=== PATIENT | male | born 1980 | race Two or more races ===

== ENCOUNTER 2017-06-02 12:45 | Emergency (ER) | payer OTHER ==
--- NOTE | ~2017-06-02 | CT4 ---
[facility] A Service of [facility] RADIOLOGY TEXT RESULTS PATIENT: JOSE R TREVIÑO LOCATION: [facility] : [birth year] UNIT #: [id number] AGE: [address]: Amarjit López MD SEX: M ORDER DR: [id number] [facility] [address] [place], [place] [address] [id number] E MR#: [id number] #: [id number] NAME: JOSE R TREVIÑO : 1980 SEX: M STUDY DATE/TIME: 06/02/2017 15:03 UNIT: [facility] ROOM: STUDY DESCRIPTION: CT Abd and Pelv Wo Cont Attending Physician: Amarjit López M.D. Ordering Physician: Amarjit López M.D. Primary Care Physician: No Primary Care Physician MEDICAL IMAGING REPORT This report is preliminary unless electronic signature is present EXAM Abdomen and pelvis CT without contrast. HISTORY Right-sided renal colic radiating to the right lower quadrant beginning this morning. TECHNIQUE Axial images were obtained without contrast. This CT exam was performed with one or more of the following radiation dose reduction techniques: automatic exposure control, adjustment of mA and/or kV according to patient size, and iterative reconstruction. FINDINGS The liver, spleen, and pancreas are normal in size. The left kidney is unremarkable. The right kidney demonstrates moderate hydronephrosis. There is a 2 mm nonobstructing right kidney stone. The right ureter is mildly dilated. There is a stone just above the UVJ on the right that measures 2-3 mm in diameter causing the obstruction. No inflammatory changes are seen elsewhere in the abdomen or pelvis. IMPRESSION 2-3 mm obstructing stone just above the UVJ on the right with moderate hydronephrosis. There is also a 2 mm nonobstructing right kidney stone. Dictated by... Jose Daniel Garcia M.D. THIS IS AN ELECTRONICALLY VERIFIED REPORT Jose Daniel Garcia M.D. at 06/03/2017 6:47 AM DAVID/lonnie [facility] A Service of [facility] RADIOLOGY TEXT RESULTS PATIENT: JOSE R TREVIÑO LOCATION: [facility] : [birth year] UNIT #: [id number] AGE: [address]: Amarjit López MD SEX: M ORDER DR: TD: 06/02/2017 19:29 JOB #: [id number] MEDICAL IMAGING REPORT Page 1 of 1 COPY
[2017-06-02 13:38] LABS: BASOPHIL% 0.4 % (0-2.5); DIFF IND NO; EOSINOPHIL# 0.1 X10e3 (0-0.7); EOSINOPHIL% 0.9 % (0.0-7.0); HEMOGLOBIN 15.8 gm/dL (13.0-16.0); LYMPHOCYTE# 2.5 X10e3 (1.0-3.5); LYMPHOCYTE% 22.4 % (17.0-45.0); MEAN CELL VOLUME 84.4 FL (83-96); MEAN CORPUSCULAR HEMOGLOBIN 27.7 PG (28-34); MEAN CORPUSCULAR HGB CONC 32.8 g/dL (30-36); MEAN PLATELET VOLUME 9.4 FL (6.5-11.5); MONOCYTE# 0.7 X10e3 (0-1.0); MONOCYTE% 6.6 % (3.0-12.0); NEUTROPHIL# 7.7 X10e3 (1.5-7.1); NEUTROPHIL% 69.7 % (40-75); PLATELET COUNT 253 X10e3 (140-420); RED BLOOD COUNT 5.68 X10e (3.90-5.60); RED CELL DISTRIBUTION WIDTH 14.1 % (11.0-15.5)
[2017-06-02 14:02] LABS: ALBUMIN SERUM 4.7 g/dL (3.5-5.0); ALKALINE PHOSPHATASE 63 U/L (32-92); ALT (SGPT) 43 U/L (10-40); AMYLASE 27 U/L (0-46); AST (SGOT) 31 U/L (10-42); BILIRUBIN,TOTAL 0.8 mg/dL (0.2-2.0); BLOOD UREA NITROGEN 16 mg/dL (9-23); BUN/CREATININE RATIO 17.77; CALCIUM SERUM 9.5 mg/dL (8.4-10.2); CARBON DIOXIDE 27 mmol/L (22-31); CHLORIDE 103 mmol/L (100-111); CREATININE SERUM 0.9 mg/dL (0.6-1.4); GLUCOSE FASTING 98 mg/dL (70-110); LIPASE 21 U/L (22-51); POTASSIUM 3.9 mmol/L (3.5-5.1); PROTEIN TOTAL SERUM 7.8 g/dL (6.0-8.3); SODIUM 138 mmol/L (135-145)
[2017-06-02 14:07] LABS: BILIRUBIN, DIRECT <0.1 mg/dL (0.0-0.2); BILIRUBIN,INDIRECT 0.7 mg/dL (0.0-0.9)
== END 2017-06-02 16:20 | disposition home or self-care (01) ==
LOC: CED 12:45
PROVIDERS: Emergency Medicine
DX: N20.1 Calculus of ureter (principal); F17.200 Nicotine dependence, unspecified, uncomplicated
CPT/HCPCS: 36415; 74176; 80048; 80076; 82150; 83690; 85025; 96374; 96375; 99284; J1170; J1885; J2270; J2405

== ENCOUNTER 2017-06-04 17:25 | Observation (INO) | payer OTHER ==
--- NOTE | ~2017-06-04 | HP ---
Unit #: [id number] #: [id number] Patient: JOSE R TREVIÑO [id number] [address] [address] [id number] I MR#: [id number] NAME: JOSE R TREVIÑO ROOM: 569 Age: 36 Sex: M Admission Date: 06/04/2017 : 1980 Attending Physician: Lucius Phillips M.D. Primary Care Physician: No Primary Care Physician HISTORY AND PHYSICAL CHIEF COMPLAINT Right flank pain, recurrent ER visitor. HISTORY OF PRESENTING ILLNESS Recurrent ER visits for retractable pain related to a 2 mm calculi, failed trial of passage. No evidence of infection, no evidence of kidney failure. He was admitted overnight with hydration and Flomax and failed to pass the stone. Intractable pain. He wishes intervention for the 2 mm distal ureteral stone. PAST MEDICAL HISTORY None. MEDICATIONS/ALLERGIES Medications and allergies reviewed in the chart and noted. REVIEW OF SYSTEMS Flank pain. No fevers, no nausea, no vomiting. No chest pain, no shortness of breath. SOCIAL HISTORY Denies illicit drug use. FAMILY HISTORY Noncontributory. PHYSICAL EXAMINATION VITAL SIGNS: Afebrile. Vital signs stable. ABDOMEN: Soft, nontender, nondistended. EXTREMITIES: No clubbing, cyanosis or edema. NEUROLOGICAL: Extraocular motions intact. ASSESSMENT Right ureteral calculi, distal. PLAN Right ureteroscopy, laser lithotripsy, basket extraction of stone, insertion of stents. Risks, benefits and alternatives were discussed, informed consent was obtained. Unit #: [id number] #: [id number] Patient: JOSE R TREVIÑO Dictated by Esther Gurrola/minna TD: 06/06/2017 06:33 JOB #: [id number] HISTORY AND PHYSICAL Page 1 of 1 X LOCO CASTILLO MD X HISTORY AND PHYSICAL
--- NOTE | ~2017-06-04 | OR ---
Unit #: [id number] #: [id number] Patient: JOSE R TREVIÑO [id number] [address] [address] [id number] I MR#: [id number] NAME: JOSE R TREVIÑO ROOM: 569 Date of Procedure: 06/05/2017 Admission Date: 06/04/2017 Surgeon: Phoenix Castillo M.D. : 1980 Attending Physician: Lucius Phillips M.D. Primary Care Physician: Primary Care Physician No OPERATIVE REPORT PREOPERATIVE DIAGNOSIS Right ureteral calculi. POSTOPERATIVE DIAGNOSIS Right ureteral calculi. PROCEDURES PERFORMED Right ureteroscopy, basket extraction of stone, and insertion of right ureteral stent. OPERATIVE INDICATION A 36-year-old gentleman with refractory pain who presents to the emergency room twice in the past week for pain secondary to a 3 mm right ureteral stone. He wishes to proceed with above-mentioned procedure after risks, benefits, alternatives, and complications were discussed. OPERATIVE FINDINGS Two small fragments in the distal right ureter 1 mm x 1 mm fragment and a second 2 mm x 3 mm fragment. DESCRIPTION OF PROCEDURE The patient was prepped and draped in lithotomy position. After induction of general anesthesia, the cystoscope was inserted and the right ureteral orifice was cannulated with a Sensor wire. Semi-rigid ureteroscopy was then performed and the above-mentioned stones were noted. These stones were basket extracted and sent for analysis. Complete ureteroscopy revealed no additional ureteral calculi. The scope was removed. A 6 x 24 JJ ureteral stent was placed over the safety wire under fluoroscopic guidance. Good curls were noted in the kidney and the bladder. The patient tolerated the procedure well. Of note, the catheter was left on a string. PLAN He will follow up in the office in 1 week for stent removal via tether. COMPLICATIONS None. ESTIMATED BLOOD LOSS None. SPECIMEN Unit #: [id number] #: [id number] Patient: JOSE R TREVIÑO Kidney stone for analysis. DRAINS None. INDWELLING DEVICES Right ureteral stent. Dictated by... Esther Gurrola/marshal TD: 06/07/2017 03:32 JOB #: [id number] OPERATIVE REPORT Page 1 of 1 X PHOENIX CASTILLO MD PROCEDURE OPERATIVE NOTE
--- NOTE | ~2017-06-04 | CT4 ---
[facility] A Service of [facility] RADIOLOGY TEXT RESULTS PATIENT: JOSE R TREVIÑO LOCATION: [facility] 569-01 : [birth year] UNIT #: [id number] AGE: [address]: Lucius Phillips MD SEX: M ORDER DR: [id number] [facility] [address] [place], [place] [address] [id number] I MR#: [id number] Acc #: [id number] NAME: JOSE R TREVIÑO : 1980 SEX: M STUDY DATE/TIME: 06/04/2017 19:57 UNIT: [facility] ROOM: [facility] STUDY DESCRIPTION: CT Abd and Pelv Wo Cont Attending Physician: Lucius Phillips M.D. Ordering Physician: Lazaro Agarwal M.D. Primary Care Physician: Primary Care Physician No MEDICAL IMAGING REPORT This report is preliminary unless electronic signature is present EXAM CT of abdomen and pelvis without contrast, 06/04/2017, 1957 hours. CLINICAL HISTORY 36-year-old with right flank pain since 06/02/2017. Diagnosed with kidney stone, 06/02/2017, with persistent pain. COMPARISON CT 06/02/2017. TECHNIQUE Helical noncontrasted images were obtained from the lung bases through the pubic symphysis without oral or intravenous contrast. Sagittal and coronal reconstructions were performed. Total exam DLP 782 mGy-cm. This CT exam was performed with one or more of the following radiation dose reduction techniques: automatic exposure control, adjustment of mA and/or kV according to patient size, and iterative reconstruction. FINDINGS Images through the lung bases remain clear. There is no effusion. Images through the abdomen without contrast demonstrate a normal appearance to the liver, spleen, pancreas, gallbladder, bile ducts and adrenal glands. The left kidney is normal. The right kidney demonstrates persistent moderate pelvocaliectasis and ureterectasis. There is a 2 mm nonobstructing stone in the anterior mid-right kidney unchanged. There is minimal stranding around the upper ureter perhaps minimally increased from the prior study. The previous stone which was in the distal ureter just prior to ureterovesical junction is now projecting at the ureterovesical junction perhaps in the intramural portion of the ureter. No new stone is seen. [facility] A Service of [facility] RADIOLOGY TEXT RESULTS PATIENT: JOSE R TREVIÑO LOCATION: [facility] 569-01 : [birth year] UNIT #: [id number] AGE: [address]: Lucius Phillips MD SEX: M ORDER DR: Stomach, small bowel and colon are normal. IMPRESSION 1. The previous 2-3 mm stone which was in the distal right ureter just short of the right ureterovesical junction on 06/02/2017, now projects either at the UVJ or just within the bladder or the intramural portion of the ureter. There is persistent moderate pelvocaliectasis, similar to 06/02/2017, with perhaps slight increase in stranding around the upper ureter and renal pelvis since 06/02/2017. 2. Stable 2 mm nonobstructing stone in the anterior mid-right kidney. STAT * RESULT Dictated by... Nataly Ratliff M.D. THIS IS AN ELECTRONICALLY VERIFIED REPORT Nataly Ratliff M.D. at 06/05/2017 6:41 PM Darek TD: 06/04/2017 20:17 JOB #: [id number] MEDICAL IMAGING REPORT Page 1 of 1 COPY
[2017-06-04 20:02] LABS: BASOPHIL% 0.3 % (0-2.5); EOSINOPHIL% 0.4 % (0.0-7.0); HEMATOCRIT 43.3 % (38.0-50.0); HEMOGLOBIN 14.1 gm/dL (13.0-16.0); LYMPHOCYTE# 1.5 X10e3 (1.0-3.5); MEAN CELL VOLUME 83.9 FL (83-96); MEAN CORPUSCULAR HEMOGLOBIN 27.3 PG (28-34); MEAN CORPUSCULAR HGB CONC 32.5 g/dL (30-36); MEAN PLATELET VOLUME 9.9 FL (6.5-11.5); MONOCYTE# 0.9 X10e3 (0-1.0); MONOCYTE% 8.3 % (3.0-12.0); NEUTROPHIL# 8.9 X10e3 (1.5-7.1); PLATELET COUNT 195 X10e3 (140-420); RED BLOOD COUNT 5.16 X10e (3.90-5.60); RED CELL DISTRIBUTION WIDTH 13.9 % (11.0-15.5); WHITE BLOOD COUNT 11.4 X10e3 (4.0-10.5)
[2017-06-04 20:05] LABS: DIFF IND NO
[2017-06-04 20:08] LABS: BUN/CREATININE RATIO 8.46; CALCIUM SERUM 9.3 mg/dL (8.4-10.2); CREATININE SERUM 1.3 mg/dL (0.6-1.4); GLOM FILT RATE Estimated 71.2 mL/min (>60)
[2017-06-04 21:35] LABS: URINE SOURCE CLEAN CATCH
[2017-06-04 21:39] LABS: URINE APPEARANCE CLEAR; URINE BILIRUBIN NEG (NEG); URINE BLOOD NEG (NEG); URINE COLOR YELLOW; URINE GLUCOSE NEG (NEG); URINE KETONE NEG (NEG); URINE LEUKOCYTE ESTERASE NEG (NEG); URINE NITRATE NEG (NEG); URINE PH 5.5 (5-8); URINE PROTEIN NEG (NEG); URINE SPECIFIC GRAVITY 1.014 (1.003-1.035); URINE UROBILINOGEN 0.2 MG/DL (NEG)
[2017-06-04 21:43] LABS: CULTURE INDICATED? NO
[2017-06-05] MEDS ORDERED: FLOMAX0.4 M1 PO (01:44)
[2017-06-05] MEDS ORDERED: CIPRO (01:45)
[2017-06-05] MEDS ORDERED: HYDROCODON-ACE1 EAC7 PO (01:45)
[2017-06-05 07:19] LABS: BASOPHIL# 0.1 X10e3 (0-0.3); BASOPHIL% 0.6 % (0-2.5); EOSINOPHIL% 0.5 % (0.0-7.0); HEMATOCRIT 38.9 % (38.0-50.0); HEMOGLOBIN 12.6 gm/dL (13.0-16.0); LYMPHOCYTE% 20.1 % (17.0-45.0); MEAN CELL VOLUME 85.1 FL (83-96); MEAN CORPUSCULAR HEMOGLOBIN 27.6 PG (28-34); MEAN CORPUSCULAR HGB CONC 32.5 g/dL (30-36); MEAN PLATELET VOLUME 9.6 FL (6.5-11.5); MONOCYTE# 0.9 X10e3 (0-1.0); MONOCYTE% 9.2 % (3.0-12.0); NEUTROPHIL# 6.8 X10e3 (1.5-7.1); NEUTROPHIL% 69.6 % (40-75); PLATELET COUNT 177 X10e3 (140-420); RED BLOOD COUNT 4.57 X10e (3.90-5.60); RED CELL DISTRIBUTION WIDTH 13.8 % (11.0-15.5); WHITE BLOOD COUNT 9.8 X10e3 (4.0-10.5)
[2017-06-05 07:35] LABS: DIFF IND NO
[2017-06-05 07:50] LABS: CALCIUM SERUM 8.7 mg/dL (8.4-10.2); CREATININE SERUM 0.9 mg/dL (0.6-1.4); POTASSIUM 4.6 mmol/L (3.5-5.1)
[2017-06-05] MEDS ORDERED: HYDROCODON-ACE1 EAC9 PO (16:46)
[2017-06-05] MEDS ORDERED: ZOFRAN PO (16:47)
[2017-06-05] MEDS ORDERED: BACTRIM DS TAB1 EACH PO (16:48)
== END 2017-06-05 18:04 | disposition home or self-care (01) ==
LOC: CED 17:25 → CEDOF 21:13 → C5C 06-05 01:10
PROVIDERS: Emergency Medicine; Urology
DX: N20.2 Calculus of kidney with calculus of ureter (principal)
CPT/HCPCS: 36415; 74176; 80048; 81003; 82365; 85025; 88300; 96361; 96374; 96375; 99285; C1758; C1769; C2617; G0378; J0690; J1170; J2250; J2270; J2405; J3010

== ENCOUNTER 2017-06-11 16:44 | Emergency (ER) | payer OTHER ==
--- NOTE | ~2017-06-11 | CT4 ---
[facility] A Service of [facility] RADIOLOGY TEXT RESULTS PATIENT: JOSE R TREVIÑO LOCATION: [facility] : [birth year] UNIT #: [id number] AGE: [address]: Liam Zambrano MD SEX: M ORDER DR: [id number] [facility] [address] [place], [place] [address] [id number] E MR#: [id number] Acc #: [id number] NAME: JOSE R TREVIÑO : 1980 SEX: M STUDY DATE/TIME: 06/11/2017 18:07 UNIT: [facility] ROOM: STUDY DESCRIPTION: CT Abd and Pelv Wo Cont Attending Physician: Carlos Eduardo Zambrano M.D. Ordering Physician: Bennie Varela M.D. Primary Care Physician: No Primary Care Physician MEDICAL IMAGING REPORT This report is preliminary unless electronic signature is present EXAM Abdomen pelvis CT without contrast HISTORY Right flank pain, dysuria since 06/05/2017, lithotripsy done on 06/05/2017. TECHNIQUE This CT exam was performed with one or more of the following radiation dose reduction techniques: automatic control, adjustment of mA and/or kV according to patient size, and iterative reconstruction. COMMENT CT abdomen and pelvis performed axial plane without IV or oral contrast media using a urinary tract stone protocol. The comparison study is from 06/04/2017. There has been interval placement of a right-sided double pigtail ureteral stent with expected course and the previously noted right-sided hydronephrosis has essentially resolved. Allowing for the presence of the stents, no ureteral calculus is seen on the right. The previously noted calculus at the right ureterovesical junction is not definitely seen. Please correlate for any clinical history of interval passage. The left kidney is unremarkable. No intrarenal calculus is appreciated on either side and there is no left-sided hydronephrosis. The lung bases are clear. CT ABDOMEN:: Noncontrast liver, gallbladder, pancreas, spleen are unremarkable. There is no abdominal aortic aneurysm. There is no free fluid in the abdomen or pelvis. Visualized appendix is within normal limits. There is nothing to suggest bowel obstruction or free air. There is no obvious perinephric fluid collection. [facility]. [facility] A Service of [facility] RADIOLOGY TEXT RESULTS PATIENT: JOSE R TREVIÑO LOCATION: [facility] : [birth year] UNIT #: [id number] AGE: [address]: Liam Zambrano MD SEX: M ORDER DR: IMPRESSION 1. There has been interval placement of a right-sided double pigtail ureteral stent. Previously noted hydronephrosis is resolved. Allowing for the presence of the stent no calculus is appreciated on the right side and the calculus previously noted at the right-sided ureterovesical junction is no longer seen. Please correlate with the patient's clinical course also. There is no left-sided urinary tract calculus. 2. There is nothing to suggest a bowel obstruction. The appendix is radiographically unremarkable. 3. The study is limited by the lack of IV and oral contrast media for evaluation for pathology other than urinary tract calculus disease. . Dictated by... Jayna Arroyo M.D. THIS IS AN ELECTRONICALLY VERIFIED REPORT Jayna Arroyo M.D. at 06/14/2017 8:16 AM JORDYN/abigail TD: 06/11/2017 23:28 JOB #: [id number] MEDICAL IMAGING REPORT Page 1 of 1 COPY
[~2017-06-11 16:44] MED LIST: BACTRIM DS TAB1 EACH PO; CIPRO; FLOMAX0.4 M1 PO; HYDROCODON-ACE1 EAC7 PO; HYDROCODON-ACE1 EAC9 PO; ZOFRAN PO
[2017-06-11 18:11] LABS: URINE SOURCE CLEAN CATCH
[2017-06-11 18:15] LABS: BASOPHIL# 0.1 X10e3 (0-0.3); BASOPHIL% 0.6 % (0-2.5); EOSINOPHIL# 0.1 X10e3 (0-0.7); EOSINOPHIL% 1.1 % (0.0-7.0); HEMATOCRIT 44.8 % (38.0-50.0); HEMOGLOBIN 14.6 gm/dL (13.0-16.0); LYMPHOCYTE% 20.5 % (17.0-45.0); MEAN CELL VOLUME 84.5 FL (83-96); MEAN CORPUSCULAR HEMOGLOBIN 27.6 PG (28-34); MEAN CORPUSCULAR HGB CONC 32.6 g/dL (30-36); MEAN PLATELET VOLUME 9.1 FL (6.5-11.5); MONOCYTE# 0.5 X10e3 (0-1.0); MONOCYTE% 4.9 % (3.0-12.0); NEUTROPHIL# 7.3 X10e3 (1.5-7.1); NEUTROPHIL% 72.9 % (40-75); PLATELET COUNT 299 X10e3 (140-420); RED BLOOD COUNT 5.31 X10e (3.90-5.60); RED CELL DISTRIBUTION WIDTH 13.7 % (11.0-15.5)
[2017-06-11 18:15] LABS: URINE APPEARANCE CLEAR; URINE BILIRUBIN NEG (NEG); URINE BLOOD 1+ (NEG); URINE COLOR YELLOW; URINE GLUCOSE NEG (NEG); URINE KETONE NEG (NEG); URINE LEUKOCYTE ESTERASE 2+ (NEG); URINE NITRATE NEG (NEG); URINE PROTEIN NEG (NEG); URINE SPECIFIC GRAVITY 1.004 (1.003-1.035); URINE UROBILINOGEN 0.2 MG/DL (NEG)
[2017-06-11 18:18] LABS: CULTURE INDICATED? YES; URBCS1 AUWI 0-2 /[HPF] (0-2); URINE BACTERIA AUWI NEG (NEGATIVE); URINE SQUAMOUS EPITHELIAL CELL NONE SEEN /[HPF]
[2017-06-11 18:20] LABS: DIFF IND NO
[2017-06-11 18:41] LABS: BUN/CREATININE RATIO 7.77; CALCIUM SERUM 9.8 mg/dL (8.4-10.2); CREATININE SERUM 0.9 mg/dL (0.6-1.4); POTASSIUM 3.9 mmol/L (3.5-5.1)
== END 2017-06-11 20:20 | disposition home or self-care (01) ==
LOC: CED 16:44
PROVIDERS: Emergency Medicine
DX: R10.9 Unspecified abdominal pain (principal); L25.9 Unspecified contact dermatitis, unspecified cause; F17.210 Nicotine dependence, cigarettes, uncomplicated; Z98.890 Other specified postprocedural states; Z87.442 Personal history of urinary calculi; Z79.899 Other long term (current) drug therapy
CPT/HCPCS: 36415; 74176; 80048; 81003; 83690; 85025; 87086; 96374; 99284; J1885

== ENCOUNTER 2017-07-15 18:55 | Emergency (ER) | payer OTHER ==
--- NOTE | ~2017-07-15 | CT71 ---
[facility] A Service of [facility] RADIOLOGY TEXT RESULTS PATIENT: JOSE R TREVIÑO LOCATION: [facility] : 84 UNIT #: [id number] AGE: [address]: Liam Zambrano MD SEX: M ORDER DR: [id number] [facility] [address] [place], [place] [address] [id number] E MR#: [id number] Acc #: [id number] NAME: JOSE R TREVIÑO : 1980 SEX: M STUDY DATE/TIME: 07/15/2017 20:55 UNIT: [facility] ROOM: STUDY DESCRIPTION: CT Head Wo Contrast Attending Physician: Carlos Eduardo Zambrano M.D. Ordering Physician: Ed Doctor [id number] [facility] Primary Care Physician: Primary Care Physician No MEDICAL IMAGING REPORT This report is preliminary unless electronic signature is present EXAM Head CT without HISTORY Headache and right shoulder pain for [address] exam was performed with one or more of the following radiation dose reduction techniques: automatic exposure control, adjustment of mA and/or kV according to patient size, and iterative reconstruction. COMMENT Routine noncontrast head CT is reviewed. There is no previous. There is no displaced calvarial fracture. Visualized mastoid air cells are clear. Visualized paranasal sinuses show only mild mucosal thickening. There is no evidence for acute intracranial hemorrhage or extraaxial fluid collection. The ventricles are normal in size and configuration and the prather-white junction is well-maintained. The basilar cisterns are patent. There is no acute cortical infarct. Suspect mild volume loss for age group. Please correlate further clinically. IMPRESSION Mild generalized volume loss for age group. Please correlate further clinically. Otherwise no acute intracranial abnormality is suspected. Dictated by... Jayna Arroyo M.D. THIS IS AN ELECTRONICALLY VERIFIED REPORT Jayna Arroyo M.D. at 07/16/2017 10:26 AM JORDYN/noble [facility] A Service of [facility] RADIOLOGY TEXT RESULTS PATIENT: JOSE R TREVIÑO LOCATION: [facility] : [birth year] UNIT #: [id number] AGE: [address]: Liam Zambrano MD SEX: M ORDER DR: TD: 07/16/2017 09:52 JOB #: [id number] MEDICAL IMAGING REPORT Page 1 of 1 COPY
== END 2017-07-15 22:09 | disposition home or self-care (01) ==
LOC: CED 18:55
DX: G44.209 Tension-type headache, unspecified, not intractable (principal); Z79.899 Other long term (current) drug therapy
CPT/HCPCS: 70450; 96361; 96374; 96375; 99284; J1100; J1885